=== PATIENT | male | born 1965 | race Caucasian/White ===

== ENCOUNTER 2022-09-17 07:42 | Emergency (ER) | payer OTHER ==
[~2022-09-17] VITALS: Ht 177.8 cm; Wt 99.8 kg
[2022-09-17] MEDS ORDERED: DOXYCYCLINE HY100 MG PO (08:46)
[2022-09-17] MEDS ORDERED: CLEOCIN HCL300 MG PO (08:47)
== END 2022-09-17 09:41 | disposition home or self-care (01) ==
LOC: FSED 07:50
DX: L03.113 Cellulitis of right upper limb (principal); I10 Essential (primary) hypertension; E78.5 Hyperlipidemia, unspecified
CPT/HCPCS: 87071; 87186; 87205; 99283; J0690